=== PATIENT | female | born 1995 | race Caucasian/White ===

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

== ENCOUNTER → 2019-03-03 | Outpatient (CLI) | payer OTHER ==
[2019-03-04 03:06] LABS: RUBEOLA (MEASLES) IGG 18.1 AU/mL (Immune >16.4)
== END | disposition home or self-care (01) ==
LOC: LABPV 09:34
PROVIDERS: ATTEND Internal Medicine
DX: Z02.1 Encounter for pre-employment examination (principal)
CPT/HCPCS: 86706; 86735; 86762; 86765; 86787